=== PATIENT | male | born 1975 ===

== ENCOUNTER 2021-09-13 23:40 | Emergency (ER) | payer OTHER ==
[~2021-09-13] VITALS: Ht 165.1 cm; Wt 93.0 kg
[2021-09-14] MEDS ORDERED: Percocet 5-3251 EACH PO (02:02)
[2021-09-14] MEDS ORDERED: IBUP600 PO (02:02)
== END 2021-09-14 04:28 | disposition home or self-care (01) ==
LOC: ER 23:40
DX: S82.851A Displaced trimalleolar fracture of right lower leg, initial encounter for closed fracture (principal); S93.04XA Dislocation of right ankle joint, initial encounter; Y04.0XXA Assault by unarmed brawl or fight, initial encounter; F17.210 Nicotine dependence, cigarettes, uncomplicated
CPT/HCPCS: 73590; 73610; J2060; J2270; J2704; J7030